=== PATIENT | female | born 1960 | race Caucasian/White ===

== ENCOUNTER 2023-06-24 21:55 | Emergency (ER) | payer OTHER ==
[2023-06-25] MEDS ORDERED: Ketorolac Tromethamine 30 MG/ML VIAL ONE (00:38)
[2023-06-25 00:45] LABS: #Eosinphils 0.2 thou/uL (0.0-0.7); #Neutrophils 7.4 thou/uL (1.40-6.50); %Basophils 0.3 % (0.0-1.0); %Eosinophils 1.4 % (0.0-10.0); %Lymphocytes 38.4 % (21.0-51.0); %Neutrophils 52.3 % (42.0-75.0); Hematocrit 47.9 % (36.0-47.0); Hemoglobin 15.9 g/dL (12.0-16.0); Mean Corpuscular HGB CONC 33.2 g/dL (32.0-36.0); Mean Corpuscular Volume 90.4 fl (78.0-98.0); Mean Platelet Volume 10.3 fL (7.4-10.4); Platelet Count 269 10x3/uL (130-400); RBC Distribution Width 15.6 % (11.5-14.5); White Blood Cell (WBC) Count 14.1 10x3/uL (4.8-10.8)
[2023-06-25 00:46] LABS: Manual Diff?? YES
[2023-06-25 01:11] LABS: ALT (SGPT) 39 U/L (8-55); AST (SGOT) 17 U/L (5-34); Alkaline Phosphatase 48 U/L (40-110); Anion Gap 15 mmol/L (10-20); Anisocytosis SLIGHT = 6-15 cells HPF (0-5); BUN (Urea Nitrogen) 21 mg/dL (9.8-20.1); Bilirubin, Total 0.4 mg/dL (0.2-1.2); Burr Cells SLIGHT = 2-5 cells HPF (0-1); Calc. Creatinine Clearance 0 mL/min (70-130); Calcium 9.6 mg/dL (7.8-10.44); Carbon Dioxide 25 mmol/L (23-31); CellaVision Operator ID lab.sh2; Chloride 102 mmol/L (98-107); Eosinophils 1 % (0-10); Estimated GFR 59; Globulin 2.5 g/dL (2.4-3.5); Glucose 100 mg/dL (80-115); Lymphocytes 42 % (21-51); Macrocytosis SLIGHT = 6-15 cells HPF (0-5); Monocytes 4 % (0-10); Neutrophil 53 % (42-75); Platelet Adequacy Comment Platelets Normal; Polychromasia SLIGHT = 2-3 cells HPF (0-2); Potassium 5.3 mmol/L (3.5-5.1); Protein, Total 6.5 g/dL (5.8-8.1); Smudge Cells 11.2 %; Sodium 137 mmol/L (136-145); Tear Drops SLIGHT = 2-5 cells HPF (0-1); Total Cell Count 98
[2023-06-25 01:12] LABS: Troponin I Less than 0.010 ng/mL (< 0.028)
[2023-06-25] MEDS ORDERED: Lidocaine 1% w/Epinephrine 1:100K 20 ML VIAL ONE (06:33)
[2023-06-25] MEDS ORDERED: Iopamidol-370 76% 500 ML MDV (1 ML CHARGE) ONE (11:45)
== END 2023-06-25 07:25 | disposition home or self-care (01) ==
LOC: ERS 21:55
DX: L02.11 Cutaneous abscess of neck (principal); R91.8 Other nonspecific abnormal finding of lung field; F17.210 Nicotine dependence, cigarettes, uncomplicated
CPT/HCPCS: 10060; 36415; 71045; 80053; 84484; 85025; 93005; 96374; J1885; Q9967

== ENCOUNTER 2023-09-28 13:50 | Outpatient (CLI) | payer OTHER | END 2023-09-28 13:51 | disposition home or self-care (01) | LOC: BICRAD 13:50 | DX: C34.12 Malignant neoplasm of upper lobe, left bronchus or lung (principal); Z90.2 Acquired absence of lung [part of] | CPT/HCPCS: 71046 ==

== ENCOUNTER 2023-11-09 10:46 | Outpatient (CLI) | payer OTHER, SELFPAY | END 2023-11-09 10:47 | disposition home or self-care (01) | LOC: ULT 10:46 | PROVIDERS: ATTEND Nurse Practitioner Family | DX: M79.604 Pain in right leg (principal); M25.561 Pain in right knee | CPT/HCPCS: 93923 ==

== ENCOUNTER 2024-05-17 09:30 | Outpatient (CLI) | payer BC | END 2024-05-17 09:31 | disposition home or self-care (01) | LOC: SCSRAD 09:30 | DX: U07.1 COVID-19 (principal) | CPT/HCPCS: 71046 ==